=== PATIENT | female | born 1970 | race Caucasian/White ===

== ENCOUNTER → 2017-01-14 | Outpatient (CLI) | payer OTHER | LOC: BMCIMAGING 08:31 | DX: Z12.31 Encounter for screening mammogram for malignant neoplasm of breast (principal) | CPT/HCPCS: G0202 ==

== ENCOUNTER → 2018-01-23 | Outpatient (CLI) | payer OTHER | LOC: BMCIMAGING 08:20 | PROVIDERS: ATTEND Nurse Practitioner Adult Health | DX: Z12.31 Encounter for screening mammogram for malignant neoplasm of breast (principal) ==

== ENCOUNTER → 2019-02-10 | Outpatient (CLI) | payer OTHER | LOC: FIMAGING 14:49 ==